=== PATIENT | female | born 1970 | race Caucasian/White ===

== ENCOUNTER 2018-01-24 23:47 | Emergency (ER) | payer MEDICAID ==
[~2018-01-24] VITALS: Ht 160 cm; Wt 70.3 kg
[2018-01-24 23:58] VITALS: BP 127/80
[2018-01-25] MEDS ORDERED: DEXAMETHASONE 4 MG TAB PO ONE
[2018-01-25] MEDS ORDERED: FAMOTIDINE 20 MG TAB PO ONE
[2018-01-25] MEDS ORDERED: FAMOTIDINE 20 MG TAB ONE (00:03)
[2018-01-25] MEDS ORDERED: diphenhdrAMINE HCL 25 MG CAP PO ONE ×2 (00:04)
[2018-01-25] MEDS ORDERED: predniSONE 20 MG TAB ONE (00:04)
[2018-01-25] MEDS ORDERED: predniSONE 20 MG TAB PO ONE (00:15)
== END 2018-01-25 01:28 | disposition left against medical advice (07) ==
LOC: ER 23:51
DX: L50.0 Allergic urticaria (principal); Z53.21 Procedure and treatment not carried out due to patient leaving prior to being seen by health care provider

== ENCOUNTER 2018-04-13 12:58 | Emergency (ER) | payer MEDICAID ==
[~2018-04-13] VITALS: Ht 160 cm; Wt 68.0 kg
[2018-04-13] MEDS ORDERED: KETOROLAC TROMETH 60MG/2ML VIAL IM ONE (14:00)
[2018-04-13] MEDS ORDERED: METHOCARBAMOL 500 MG TAB PO ONE (14:00)
[2018-04-13 14:29] VITALS: BP 141/80
== END 2018-04-13 15:16 | disposition home or self-care (01) ==
LOC: ER 12:58
DX: G89.29 Other chronic pain (principal); M54.5 Low back pain; Z88.1 Allergy status to other antibiotic agents
CPT/HCPCS: 96372; 99283; J1885

== ENCOUNTER 2020-01-04 13:33 | Emergency (ER) | payer MEDICAID ==
[~2020-01-04] VITALS: Ht 160 cm; Wt 68.0 kg
[2020-01-04 14:11] VITALS: BP 123/86
[2020-01-04 15:29] LABS: Eosinophils # (auto) 0.8 uL; Mean Corpuscular Hemoglobin 22.1 pg (28.0-32.0); Monocytes # (auto) 0.6 uL; Monocytes % (auto) 8.3 % (0.0-12.0); Neutrophils # (auto) 4.3 uL
[2020-01-04 15:30] LABS: Basophils # (auto) 0.1 uL; Basophils % (auto) 0.8 % (0.0-2.0); Eosinophils % (auto) 11.4 % (0.0-7.0); Hematocrit 33.4 % (36.0-46.0); Hemoglobin 10.3 g/dL (12.2-16.2); Lymphocytes # (auto) 1.4 uL; Lymphocytes % (auto) 19.4 % (10.0-50.0); Mean Corpuscular Hgb Conc. 30.9 g/dL (32.0-36.0); Mean Corpuscular Volume 71.5 fL (80.0-100.0); Neutrophils % (auto) 60.1 % (37.0-80.0); Nucleated Red Blood Cells % 0.1 %; Platelet Count (auto) 332 10^3/uL (140-450); Red Blood Cells 4.68 10^6/uL (4.0-5.20); Red Cell Distribution Width 17.5 % (11.8-14.3); White Blood Cell 7.1 10^3/uL (4.4-10.8)
[2020-01-04 15:50] LABS: Albumin 3.7 g/dL (3.4-5.0); Anion Gap 6 (5-15); Blood Urea Nitrogen 7 mg/dL (7-18); Calcium 8.9 mg/dL (8.5-10.1); Carbon Dioxide 28 mmol/L (21-32); Chloride 102 mmol/L (98-107); Glucose 97 mg/dL (74-106); Potassium 3.8 mmol/L (3.5-5.1); Sodium 136 mmol/L (136-145)
[2020-01-04 15:55] LABS: Alanine Aminotransferase 21 U/L (13-56); Alkaline Phosphatase 97 U/L (45-117); Aspartate Aminotransferase 20 U/L (15-37); BUN/Creatinine Ratio 11.1; Bilirubin, Total 0.3 mg/dL (0.2-1.0); GFR African American 129 mL/min; GFR Non-African American 106 mL/min; Total Protein 7.7 g/dL (6.4-8.2)
[2020-01-04] MEDS ORDERED: IPRATROPIUM BROM 0.5 MG/2.5ML INH SOL HHN ONE (20:30)
[2020-01-04] MEDS ORDERED: ALBUTEROL SULF 2.5 MG/0.5ML(0.5%) NEB SOLN HHN ONE (20:30)
== END 2020-01-04 21:59 | disposition home or self-care (01) ==
LOC: ER 13:33
DX: J20.9 Acute bronchitis, unspecified (principal); R07.89 Other chest pain; R51 Headache
CPT/HCPCS: 36415; 71046; 80053; 84484; 85025; 94644; 99285; J7611; J7644

== ENCOUNTER 2020-01-10 09:26 | Emergency (ER) | payer MEDICAID ==
[~2020-01-10] VITALS: Ht 160 cm; Wt 68.0 kg
[2020-01-10 09:31] VITALS: BP 126/87
[2020-01-10] MEDS ORDERED: IPRATROPIUM BROM 0.5 MG/2.5ML INH SOL NEB ONE (10:30)
[2020-01-10] MEDS ORDERED: methylPREDNISolone SOD SUCC 125 MG/2 ML VL IM ONE (10:30)
[2020-01-10] MEDS ORDERED: ALBUTEROL SULF 2.5 MG/0.5ML(0.5%) NEB SOLN NEB ONE (10:30)
== END 2020-01-10 11:30 | disposition home or self-care (01) ==
LOC: ER 09:26
DX: J20.9 Acute bronchitis, unspecified (principal); Z90.49 Acquired absence of other specified parts of digestive tract
CPT/HCPCS: 71046; 94640; 96372; 99283; J2930; J7644